=== PATIENT | male | born 1965 | race African-American/Black ===

== ENCOUNTER 2016-04-28 11:17 | Emergency (ER) | payer SELFPAY ==
[~2016-04-28] VITALS: Ht 175.3 cm; Wt 88.9 kg
[2016-04-28 11:17] VITALS: BP 129/82
[~2016-04-28 11:17] MED LIST: GLYB5TAB7 PO; LISI10TA5 PO; METF500T4 PO
== END 2016-04-28 12:46 | disposition home or self-care (01) ==
LOC: ER 11:17
DX: Z76.0 Encounter for issue of repeat prescription (principal); I10 Essential (primary) hypertension; E11.9 Type 2 diabetes mellitus without complications; F17.200 Nicotine dependence, unspecified, uncomplicated
CPT/HCPCS: 99283; A4606; Z7610